=== PATIENT | female | born 1985 ===

== ENCOUNTER 2017-12-01 13:19 | Emergency (ER) | payer BC, OTHER ==
[~2017-12-01] VITALS: Ht 162.6 cm; Wt 81.0 kg
[~2017-12-01 13:19] MED LIST: MTRUNK PO; PRCUNK PO; states no home meds
[2017-12-01 13:21] VITALS: Ht 162.6 cm; Wt 81.0 kg
--- NOTE | 2017-12-01 14:01 | EMERGENCY ROOM VISIT NOTE ---
ED Visit Note First contact with patient: 13:27 CHIEF COMPLAINT: Low back pain HISTORY OF PRESENT ILLNESS: This 32 year-old female who presents to the emergency department with complaint of low back patient after falling earlier today. Patient states she was walking down a few stairs, slipped and fell directly onto her left lower back. She denies hitting her head, no loss of consciousness, she denies any upper back pain, chest pain, shortness of breath, abdominal pain, headache, neck pain, or extremity pain. She denies any numbness , tingling, or weakness in her legs. She has been able to walk after the fall. She states the pain has been constant, worse with movement torso or legs, currently rates her pain as 3/10. Patient states that initially her pain was 10 /10, she took "some type of pain killer, it was 500 mg" and she reports that her pain is significantly improved. Patient denies any concern for , states her period started today. REVIEW OF SYSTEMS: A complete 10 point review of systems was reviewed with the patient with pertinent positives and negatives as per history of present illness. All else were negative. PMH: Hepatitis B infection, PCOS SOCIAL HISTORY: Patient lives at home with her family. She denies tobacco use, alcohol use, recreational drug use. PHYSICAL EXAM: Vital Signs: Reviewed Nurse's notes. CONSTITUTIONAL: Pleasant and cooperative. No acute distress. Well appearing and well nourished. HEENT: Normocephalic, atraumatic. Pupils equal, round and reactive to light, EOMI. TMs normal. Pharynx normal. Moist mucous membranes NECK: Supple, full active range of motion without discomfort. RESPIRATORY: Clear to auscultation bilaterally with no wheezing, crackles, rhonchi or stridor. Equal expansion bilaterally. CARDIOVASCULAR: Regular rate and rhythm with no murmurs, rubs or gallops. Normal peripheral perfusion. No edema. GASTROINTESTINAL: Soft, nontender, nondistended. No palpable masses or HSM. Bowel sounds present in all quadrants. No ecchymosis or abrasions. BACK: There is no midline tenderness of the thoracic or lumbar spine, no step- offs, no crepitus. No ecchymosis or abrasions noted to the back or flanks. There is tenderness of the left lumbar paraspinous muscles at the level of L1 to L3, reproduces complaints. MUSCULOSKELETAL: Full range of motion of all joints without discomfort. Normal movement of legs, normal strength and sensation bilaterally, Achilles and patellar tendon reflexes are 2+ and equal bilaterally, normal gait observed. INTEGUMENTARY: No rash or other significant dermatologic conditions noted. NEUROLOGIC: Alert and oriented X 4 with normal affect. Cranial nerves II-XII grossly intact. No focal neurologic deficits noted. Normal speech, normal coordination. EMERGENCY DEPARTMENT COURSE: I examined the patient. There is no midline tenderness or step-offs of the lumbar or thoracic spine. There is tenderness to palpation of the left lumbar paraspinous muscles, reproducing complaint. There is no ecchymosis or abrasions to the lower back. Patient reports she is feeling much better after taking some form of pain killer at home, given her description I suspect naproxen. She declines any further medication for her pain. She was given an ice pack for continued use at home. She was encouraged to follow closely with her PCP if her symptoms are not getting better in the next several days, as well as given strict return precautions should her symptoms worsen, she verbalized understanding. Patient was discharged home in stable condition and inability. Current/Historical Medications Scheduled Metformin Hcl (Glucophage), 500 MG PO BID Allergies Coded Allergies: No Known Allergies (Unverified , 12/01/17) Vital Signs Date Time Temp Pulse Resp B/P (MAP) Pulse Ox O2 Delivery O2 Flow Rate FiO2 12/01/17 14:04 36.7 64 16 112/70 97 12/01/17 13:21 36.7 64 16 112/70 97 Room Air Departure Information Impression Primary Impression: Contusion of lower back Dispostion Home / Self-Care Condition GOOD Referrals No Doctor, Assigned (PCP) [facility] Patient Instructions ED Contusion Back, My [facility] Additional Instructions Take it easy for the next few days, no strenuous activity, heavy lifting, or bending/twisting motions, to allow your back to rest. Apply ice to your lower back for the next 2-3 days to help reduce pain and swelling. After that you may alternate between heat and ice for comfort. You may do gentle stretching and massage to the low back. You may take the following [id number] medications as needed for pain: - Tylenol 1000 mg every 8 hours, not more than 3000 mg in 24 hours. - Ibuprofen 600 mg every 6-8 hours, not more than 2400 mg in 24 hours. - For best results, you may alternate between the Tylenol and the ibuprofen every 3-4 hours. Follow up with your PCP in the next few days for further management. You may benefit from physical therapy. Please return to the ER if any problems with bowel or bladder function, numbness in your groin, high fevers, severe abdominal pain or worsening back pain, or if loss of feeling/movement of legs. Work Instructions Return To Work: 1 day Problem Qualifiers Primary Impression: Contusion of lower back Encounter type: initial encounter Qualified Codes: S30.0XXA - Contusion of lower back and pelvis, initial encounter
[2017-12-01 14:04] VITALS: BP 112/70; PULSE 64; TEMP 36.7; O2SAT 97
[2017-12-01] MEDS ORDERED: GLC/500 PO (14:06)
== END 2017-12-01 14:10 | disposition home or self-care (01) ==
LOC: C.EDB 13:20 → C.EDD 14:10
DX: S30.0XXA Contusion of lower back and pelvis, initial encounter (principal); W10.9XXA Fall (on) (from) unspecified stairs and steps, initial encounter; Y93.01 Activity, walking, marching and hiking; Y99.8 Other external cause status; E28.2 Polycystic ovarian syndrome